=== PATIENT | male | born 2000 | race Caucasian/White ===

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

== ENCOUNTER → 2021-03-10 | Outpatient (CLI) | payer BC | LOC: COL.RAD 03-07 12:00 | DX: I86.1 Scrotal varices (principal); N50.82 Scrotal pain ==

== ENCOUNTER → 2021-11-13 | Outpatient (CLI) | payer BC | LOC: COL.RAD 14:53 | DX: R59.0 Localized enlarged lymph nodes (principal) ==